=== PATIENT | female | born 1960 | race Caucasian/White ===

== ENCOUNTER 2016-04-04 08:27 | Emergency (ER) | payer OTHER ==
[~2016-04-04] VITALS: Ht 167.6 cm; Wt 53.5 kg
[~2016-04-04 08:27] MED LIST: CHOL20004 PO
[2016-04-04 08:38] VITALS: BP 122/81
[2016-04-04] MEDS ORDERED: IBUPROFEN 600 MG TABLET PO ONE ×2 (08:43→09:00)
== END 2016-04-04 09:04 | disposition home or self-care (01) ==
LOC: ER 08:29
DX: S46.911A Strain of unspecified muscle, fascia and tendon at shoulder and upper arm level, right arm, initial encounter (principal); Z98.890 Other specified postprocedural states; X58.XXXA Exposure to other specified factors, initial encounter; Y93.41 Activity, dancing; Y92.89 Other specified places as the place of occurrence of the external cause; Y99.8 Other external cause status
CPT/HCPCS: 73030; 99284; A4606; Z7610

== ENCOUNTER 2016-05-16 19:39 | Emergency (ER) | payer OTHER ==
[~2016-05-16] VITALS: Ht 165.1 cm; Wt 53.5 kg
[2016-05-16 19:55] VITALS: BP 141/91
--- NOTE | 2016-05-16 20:03 | NUR ---
mervin catalan at bedside to jeff mendez.
== END 2016-05-16 20:15 | disposition home or self-care (01) ==
LOC: ER 19:42
DX: J20.9 Acute bronchitis, unspecified (principal); E11.9 Type 2 diabetes mellitus without complications
CPT/HCPCS: 99283; A4606; Z7610

== ENCOUNTER 2016-12-15 01:09 | Emergency (ER) | payer OTHER ==
--- NOTE | 2016-12-15 01:30 | NUR ---
CALLED PT NAME X3 . NO RESPONSE IN WR
--- NOTE | 2016-12-15 01:45 | NUR ---
CALLED PT NAME X3 . NO RESPONSE IN WR
--- NOTE | 2016-12-15 02:05 | NUR ---
CALLED PT NAME X3 . NO RESPONSE IN WR
--- NOTE | 2016-12-15 02:15 | NUR ---
CALLED PT NAME X3 . NO RESPONSE IN WR
--- NOTE | 2016-12-15 02:24 | NUR ---
CALLED PT NAME. NO ONE IN WR. PER ADMITTING PT LEFT.
== END 2016-12-15 02:27 | disposition left against medical advice (07) ==
LOC: ER 01:09
DX: Z53.21 Procedure and treatment not carried out due to patient leaving prior to being seen by health care provider (principal)

== ENCOUNTER 2017-06-09 09:12 | Emergency (ER) | payer OTHER ==
[~2017-06-09] VITALS: Ht 165.1 cm; Wt 52.2 kg
--- NOTE | 2017-06-09 09:20 | NUR ---
PT CAME IN WITH C/O FEELING WEAK X 2 DAYS. NAD NOTED. SEEN BY MD FOR EVAL. VSS. SAFETY AND COMFORT MEASURES PROVIDED. WILL MONITOR.
[2017-06-09] MEDS ORDERED: LORAZEPAM 0.5 MG TABLET PO ONE (09:30)
[2017-06-09 09:40] LABS: APPEARANCE,URINE Clear (CLEAR); BILIRUBIN,URINE Negative (NEGATIVE); BLOOD, URINE Negative Ery/uL (NEGATIVE); COLOR,URINE Yellow (YELLOW); KETONES,URINE Negative (NEGATIVE); LEUKOCYTE ESTERASE ,URINE Small (NEGATIVE); NITRITE, URINE Negative (NEGATIVE); PH,URINE 7.5 (5.0-8.0); PROTEIN,URINE Negative (NEGATIVE); UGLUCOSE Negative (NEGATIVE); UROBILINOGEN,URINE 0.2 EU/dL (0.2)
--- NOTE | 2017-06-09 09:40 | NUR ---
US AT BS.
[2017-06-09] MEDS ORDERED: LORAZEPAM 1 MG TABLET ONE (09:48)
[2017-06-09 09:49] LABS: BASOPHILS % (AUTO) 0.7 % (0.0-2.0); EOSINOPHILS % (AUTO) 1.5 % (0.0-6.0); HEMATOCRIT 38 % (33-45); HEMOGLOBIN 12.5 g/dL (11.5-14.8); LYMPHOCYTES # (AUTO) 0.8 /CMM (0.8-4.8); LYMPHOCYTES % (AUTO) 21.9 % (20.0-44.0); MEAN CORPUSCULAR HGB CONC 33 g/dl (31.0-36.0); MEAN CORPUSCULAR VOLUME 82 fL (82-100); MONOCYTES # (AUTO) 0.3 /CMM (0.1-1.30); MONOCYTES % (AUTO) 9.8 % (2.0-12.0); NEUTROPHILS # (AUTO) 2.3 /CMM (1.8-8.9); NEUTROPHILS % (AUTO) 66.1 % (43.0-81.0); PLATELET COUNT (AUTO) 143 /CMM (150-450); RDW COEFFICIENT OF VARIATION 12.9 (11.5-15.0); RED BLOOD CELL COUNT(AUTO) 4.66 MIL/uL (4.0-5.2); WHITE BLOOD COUNT (AUTO) 3.5 K/uL (4.3-11.0)
[2017-06-09 09:59] LABS: CALCIUM, SERUM 8.9 mg/dL (8.5-10.1); CREATININE 0.7 mg/dL (0.6-1.3); POTASSIUM 3.8 mmol/L (3.5-5.1)
[2017-06-09 10:04] LABS: INR 0.95 (0.85-1.15)
[2017-06-09 10:06] LABS: BACTERIA,URINE Few /HPF (None Seen); RBC,URINE 0-2 /HPF (0-2); SQUAMOUS EPITHELIAL CELL,UR Few /HPF (None Seen); WBC,URINE 0-2 /HPF (0-3)
[2017-06-09 10:23] LABS: THYROID STIMULATING HORMONE 1.085 uIU/mL (0.358-3.74)
--- NOTE | 2017-06-09 10:34 | NUR ---
Patient discharged to home in stable condition. Written and verbal after care instructions given. Patient verbalizes understanding of instruction.
[2017-06-09 10:35] VITALS: BP 114/75
== END 2017-06-09 10:36 | disposition home or self-care (01) ==
LOC: ER 09:14
DX: R22.1 Localized swelling, mass and lump, neck (principal); F41.9 Anxiety disorder, unspecified; F10.10 Alcohol abuse, uncomplicated; R53.81 Other malaise; F43.9 Reaction to severe stress, unspecified
CPT/HCPCS: 36415; 76536; 80048; 81001; 84443; 84703; 85025; 85730; 93005; 99285; A4606; Z7610; 81000-TC

== ENCOUNTER 2017-06-23 22:09 | Emergency (ER) | payer OTHER ==
--- NOTE | 2017-06-23 23:27 | NUR ---
CALLED PT IN WR, NO RESPONSE
--- NOTE | 2017-06-24 00:16 | NUR ---
CALLED AGAIN; NO ANSWER. INFORMED BY ADMITTING "PT LEFT".
== END 2017-06-24 00:18 | disposition left against medical advice (07) ==
LOC: ER 22:12
DX: F41.9 Anxiety disorder, unspecified (principal); Z53.21 Procedure and treatment not carried out due to patient leaving prior to being seen by health care provider

== ENCOUNTER 2017-08-01 13:39 | Emergency (ER) | payer OTHER ==
[~2017-08-01] VITALS: Ht 165.1 cm; Wt 49.9 kg
--- NOTE | 2017-08-01 13:50 | NUR ---
PRESENTS TO ER C/O CHEST WALL PAIN S/P DANCE CLASS SINCE THURSDAY. DENIES FALL OR TRAUMA. VSS, NO DISTRESS. SAFETY AND COMFORT MEASURES IN PLACE. AWAITING MD ORDERS.
--- NOTE | 2017-08-01 14:47 | NUR ---
PATIENT TAKEN TO RADIOLOGY.
--- NOTE | 2017-08-01 14:55 | NUR ---
PATIENT RETURNED FROM RADIOLOGY IN STABLE CONDITION.
[2017-08-01 15:17] VITALS: BP 124/76
--- NOTE | 2017-08-01 15:19 | NUR ---
Patient discharged to home in stable condition. Written and verbal after care instructions given. Patient verbalizes understanding of instruction.
== END 2017-08-01 15:18 | disposition home or self-care (01) ==
LOC: ER 13:40
DX: R06.02 Shortness of breath (principal); F41.9 Anxiety disorder, unspecified; F10.10 Alcohol abuse, uncomplicated; Y90.9 Presence of alcohol in blood, level not specified
CPT/HCPCS: 71045; 93005; 99284; A4606; Z7610

== ENCOUNTER 2017-08-13 14:18 | Emergency (ER) | payer OTHER ==
[~2017-08-13] VITALS: Ht 165.1 cm; Wt 50.8 kg
[2017-08-13 14:23] VITALS: BP 116/62
--- NOTE | 2017-08-13 14:25 | NUR ---
PRESENTS TO ER C/O PAIN AND SWELLING TO R SIDE OF NECK X 2 MONTHS. A/OX 4, BREATHING EVEN AND UNLABORED. NO SOB, NAD, NO TRAUMA. VSS. SAFETY AND COMFORT MEASURES IN PLACE. AWAITING MD ORDERS.
== END 2017-08-13 14:49 | disposition home or self-care (01) ==
LOC: ER 14:20
DX: R59.0 Localized enlarged lymph nodes (principal); F41.9 Anxiety disorder, unspecified
CPT/HCPCS: 99281; A4606; Z7610; Z7502

== ENCOUNTER 2017-10-31 14:11 | Emergency (ER) | payer OTHER ==
[~2017-10-31] VITALS: Ht 165.1 cm; Wt 58.5 kg
[2017-10-31] MEDS ORDERED: IV NS 0.9% 1,000 ML BAG IV ONE (15:00)
[2017-10-31 15:01] LABS: BASOPHILS % (AUTO) 0.5 % (0.0-2.0); EOSINOPHILS % (AUTO) 2.2 % (0.0-6.0); HEMATOCRIT 36 % (33-45); HEMOGLOBIN 11.8 g/dL (11.5-14.8); LYMPHOCYTES # (AUTO) 0.8 /CMM (0.8-4.8); MEAN CORPUSCULAR HGB CONC 33 g/dl (31.0-36.0); MEAN CORPUSCULAR VOLUME 85 fL (82-100); MONOCYTES # (AUTO) 0.3 /CMM (0.1-1.30); MONOCYTES % (AUTO) 12.4 % (2.0-12.0); NEUTROPHILS # (AUTO) 1.5 /CMM (1.8-8.9); NEUTROPHILS % (AUTO) 54.9 % (43.0-81.0); PLATELET COUNT (AUTO) 123 /CMM (150-450); RDW COEFFICIENT OF VARIATION 12.1 (11.5-15.0); RED BLOOD CELL COUNT(AUTO) 4.19 MIL/uL (4.0-5.2); WHITE BLOOD COUNT (AUTO) 2.7 K/uL (4.3-11.0)
--- NOTE | 2017-10-31 15:06 | NUR ---
INTERMITTENT DIARRHEA X 2 WEEKS, ASSOCIATED WITH ABX USE. PT AAOX3, VSS. DENIES ABD PAIN, DIZZINESS, N/V @ THIS TIME. PT SEEN & EVAL'D BY DR. MORELOS. WILL CONT TO MONITOR.
[2017-10-31 15:14] LABS: CALCIUM, SERUM 8.5 mg/dL (8.5-10.1); CREATININE 0.7 mg/dL (0.6-1.3); POTASSIUM 4.5 mmol/L (3.5-5.1)
--- NOTE | 2017-10-31 15:41 | NUR ---
DC'D SL ON RAC, CATHETER INTACT, APPLIED GAUZE & SECURED WITH TAPE & NO ACTIVE BLEEDING NOTED UPON LEAVING ED.
--- NOTE | 2017-10-31 15:41 | NUR ---
Patient discharged to home in stable condition. Written and verbal after care instructions given. Patient verbalizes understanding of instruction.
[2017-10-31 15:43] VITALS: BP 124/87
== END 2017-10-31 15:44 | disposition home or self-care (01) ==
LOC: ER 14:12
DX: R19.7 Diarrhea, unspecified (principal); F41.9 Anxiety disorder, unspecified; Z98.890 Other specified postprocedural states
CPT/HCPCS: 36415; 80048; 85025; 99284; A4606; J7030; Z7610

== ENCOUNTER 2018-01-25 09:44 | Emergency (ER) | payer OTHER ==
[~2018-01-25] VITALS: Ht 165.1 cm; Wt 54.9 kg
--- NOTE | 2018-01-25 10:00 | NUR ---
PT BIB SELF r 5th toe pain s/p accidentally kicked the corner of the bed last night. ALERT AND ORIENTED X4, VERBALLY RESPONSIVE. ON ROOM AIR, BREAHTING EVENLY AND UNLABORED. KEPT COMFOERTABLE. WILL CONTINUE TO MONITOR ACCORDINGLY.
[2018-01-25 11:07] VITALS: BP 125/70
--- NOTE | 2018-01-25 11:08 | NUR ---
Patient discharged to home in stable condition. Written and verbal after care instructions given. Patient verbalizes understanding of instruction.
== END 2018-01-25 11:08 | disposition home or self-care (01) ==
LOC: ER 09:45
DX: S92.514A Nondisplaced fracture of proximal phalanx of right lesser toe(s), initial encounter for closed fracture (principal); F41.9 Anxiety disorder, unspecified; F10.10 Alcohol abuse, uncomplicated; Y90.9 Presence of alcohol in blood, level not specified; W22.8XXA Striking against or struck by other objects, initial encounter; Y93.89 Activity, other specified; Y92.89 Other specified places as the place of occurrence of the external cause; Y99.8 Other external cause status
CPT/HCPCS: 73630; 99283; A4606; Z7610

== ENCOUNTER 2018-10-31 08:44 | Emergency (ER) | payer OTHER ==
[~2018-10-31] VITALS: Ht 165.1 cm; Wt 49.9 kg
[2018-10-31 08:51] VITALS: BP 124/75
== END 2018-10-31 09:20 | disposition home or self-care (01) ==
LOC: ER 08:44
DX: B37.9 Candidiasis, unspecified (principal); R21 Rash and other nonspecific skin eruption; Z88.0 Allergy status to penicillin

== ENCOUNTER 2019-02-02 05:45 | Emergency (ER) | payer OTHER ==
[~2019-02-02] VITALS: Ht 165.1 cm; Wt 49.9 kg
--- NOTE | 2019-02-02 06:23 | NUR ---
BIBS FROM HOME TO ER BED 9. AAOX4. NO RESP DISTRESS NOTED. AMBULATORY. C/O DIARRHEA. PT REPORTS THAT DIARRHEA STARTED YESTERDAY AND RECENTLY COMPLETED A COURSE OF ATB FOR H PYLORI. PT REPORTS THAT SHE GETS T HIS WHENEVER SHE IS ON ATB. PT REPORTS WATTERY STOOL. AWAITING MD FOR EVAL. IV LINE OBTAINED ON R AC 20G. BLOOD DRAWN AND GIVEN TO [employer]OD[employer] MANAGER AT BEDSIDE. PT IS UNABLE PROVIDED STOOL SAMPLE AT THIS TIME.
[2019-02-02 06:24] LABS: BASOPHILS % (AUTO) 0.2 % (0.0-2.0); EOSINOPHILS % (AUTO) 2.5 % (0.0-6.0); HEMATOCRIT 33 % (33-45); HEMOGLOBIN 11.1 g/dL (11.5-14.8); LYMPHOCYTES # (AUTO) 0.5 /CMM (0.8-4.8); LYMPHOCYTES % (AUTO) 29.8 % (20.0-44.0); MEAN CORPUSCULAR HGB CONC 34 g/dl (31.0-36.0); MEAN CORPUSCULAR VOLUME 85 fL (82-100); MONOCYTES # (AUTO) 0.2 /CMM (0.1-1.30); MONOCYTES % (AUTO) 13.1 % (2.0-12.0); NEUTROPHILS # (AUTO) 0.9 /CMM (1.8-8.9); NEUTROPHILS % (AUTO) 54.4 % (43.0-81.0); PLATELET COUNT (AUTO) 78 /CMM (150-450); RED BLOOD CELL COUNT(AUTO) 3.89 MIL/uL (4.0-5.2)
[2019-02-02 06:26] LABS: CALCIUM, SERUM 9.1 mg/dL (8.5-10.1); CREATININE 0.7 mg/dL (0.6-1.3); POTASSIUM 3.8 mmol/L (3.5-5.1); WHITE BLOOD COUNT (AUTO) 1.7 K/uL (4.3-11.0)
[2019-02-02 06:32] LABS: ALBUMIN 3.1 g/dL (3.4-5.0); BILIRUBIN,DIRECT 0.1 mg/dL (0.0-0.2); BILIRUBIN,TOTAL 0.2 mg/dL (0.2-1.0); TOTAL PROTEIN, SERUM 8.7 g/dL (6.4-8.2)
[2019-02-02] MEDS ORDERED: IV NS 0.9% 1,000 ML BAG IV ONE (07:00)
--- NOTE | 2019-02-02 07:00 | NUR ---
emt at bedside for ekg
[2019-02-02 07:05] LABS: NEUTROPHILS % (MANUAL) 60 (42-76)
[2019-02-02 07:06] LABS: EOSINOPHILS % (MANUAL) 2 % (0-4); LYMPHOCYTES % (MANUAL) 29 % (16-48); MONOCYTES % (MANUAL) 11 % (0-11.0)
[2019-02-02 07:44] VITALS: BP 127/82
--- NOTE | 2019-02-02 07:44 | NUR ---
Patient is resting comfortably in bed with eyes closed. Easily aroused. VSS
--- NOTE | 2019-02-02 08:00 | NUR ---
IV removed. Catheter intact and site benign. Pressure and 4x4 applied to site. No bleeding noted. Patient discharged to home in stable condition. Written and verbal after care instructions given. Patient verbalizes understanding of instruction.
== END 2019-02-02 08:19 | disposition home or self-care (01) ==
LOC: ER 05:56
DX: R19.7 Diarrhea, unspecified (principal); D72.819 Decreased white blood cell count, unspecified; D61.818 Other pancytopenia; R21 Rash and other nonspecific skin eruption; R53.1 Weakness; F41.9 Anxiety disorder, unspecified; Z98.890 Other specified postprocedural states; Z88.0 Allergy status to penicillin; Z79.899 Other long term (current) drug therapy
CPT/HCPCS: 36415; 80048; 80076; 85025; 93005; 96360; 99284; J7030

== ENCOUNTER 2019-03-08 18:27 | Emergency (ER) | payer OTHER ==
[~2019-03-08] VITALS: Ht 165.1 cm; Wt 48.1 kg
[2019-03-08 19:25] VITALS: BP 123/78
[2019-03-08] MEDS ORDERED: IBUPROFEN 600 MG TABLET PO ONE ×2 (19:45→20:00)
--- NOTE | 2019-03-08 20:33 | NUR ---
Patient discharged to home in stable condition. Written and verbal after care instructions given. Patient verbalizes understanding of instruction.
== END 2019-03-08 20:33 | disposition home or self-care (01) ==
LOC: ER 18:30
DX: J20.9 Acute bronchitis, unspecified (principal); F41.9 Anxiety disorder, unspecified; Z98.890 Other specified postprocedural states; Z88.0 Allergy status to penicillin; Z88.1 Allergy status to other antibiotic agents
CPT/HCPCS: 71045-TC

== ENCOUNTER 2020-05-11 10:06 | Emergency (ER) | payer OTHER ==
[~2020-05-11] VITALS: Ht 165.1 cm; Wt 56.7 kg
[2020-05-11 10:12] VITALS: BP 122/78
--- NOTE | 2020-05-11 10:15 | NUR ---
THE PATIENT IS BIBS FOR C/O RFA SORENESS S/P EXERCISE, LIFTING WEIGHTS. THE PATIENT C/O RFA PAIN 05/19. THE PATIENT DENIES ANY NUMBNESS/TINGLING IN THE EXTREMITIES. THE PATIENT DENIES SOB. RESPIRATION REGULAR AND UNLABORED. THE PATIENT IS IN ER BED #9. WILL CONTINUE TO MONITOR.
--- NOTE | 2020-05-11 10:18 | NUR ---
DR BALDERRAMA AT THE BEDSIDE.
--- NOTE | 2020-05-11 10:30 | NUR ---
Patient discharged to home in stable condition. Written and verbal after care instructions given. Patient verbalizes understanding of instruction. The patient left ER in stable condition.
== END 2020-05-11 10:31 | disposition home or self-care (01) ==
LOC: ER 10:10
DX: S46.811A Strain of other muscles, fascia and tendons at shoulder and upper arm level, right arm, initial encounter (principal); Z98.890 Other specified postprocedural states; Z88.0 Allergy status to penicillin; Z88.1 Allergy status to other antibiotic agents; Z79.899 Other long term (current) drug therapy; X58.XXXA Exposure to other specified factors, initial encounter; Y93.B9 Activity, other involving muscle strengthening exercises; Y92.89 Other specified places as the place of occurrence of the external cause; Y99.8 Other external cause status